=== PATIENT | female | born 1995 | race Hispanic/Latino ===

== ENCOUNTER 2016-05-06 18:26 | Emergency (ER) | payer OTHER | END 2016-05-06 22:15 | disposition home or self-care (01) | LOC: ER 18:26 | CPT/HCPCS: 74022; 76705 ==

== ENCOUNTER 2016-05-07 13:54 | Emergency (ER) | payer OTHER ==
[2016-05-07] MEDS ORDERED: OPTIRAY 350 100 ML VIAL HMH IV ONE (13:55)
[2016-05-07] MEDS ORDERED: ONDANSETRON 4 MG VIAL ONE (17:09)
[2016-05-07] MEDS ORDERED: FAMOTIDINE 20 MG INJ ONE (17:10)
[2016-05-07] MEDS ORDERED: SODIUM CHLORIDE 0.9% 1,000 ML ONE (17:10)
[2016-05-07] MEDS ORDERED: KETOROLAC 30 MG/ML VIAL ONE (19:03)
[2016-05-07] MEDS ORDERED: DEXTROSE 50% 50 ML ONE (20:47)
== END 2016-05-07 21:26 | disposition home or self-care (01) ==
LOC: ER 13:54
CPT/HCPCS: 36415 ×2; 74177 ×2; 82947 ×2; 96361 ×2; 96374 ×2; 96375 ×2; 99284; J1885; J2405; Q9967